=== PATIENT | female | born 1960 | race Caucasian/White ===

== ENCOUNTER → 2016-09-30 | Outpatient (CLI) | payer OTHER ==
[~2016-09-30] VITALS: Ht 165.1 cm; Wt 65.3 kg
[~2016-09-30] MED LIST: NS 1,000 ML IV ONE; PROPOFOL 200 MG/20 ML VIAL As Ordered ONE
--- NOTE | 2016-09-30 09:59 | ROOR ---
Patient Name: Taniya Saab Procedure Date: 09/30/2016 9:25 AM Date of : 1960 Age: 55 Room: [facility] Gender: Female Note Status: Finalized Procedure: Colonoscopy Indications: Hematochezia Providers: DO Joey Dyson MD: Mounika Constantino NP Requesting Provider: Medicines: Propofol per Anesthesia Complications: No immediate complications. Procedure: Pre-Anesthesia Assessment: - Prior to the procedure, a History and Physical was performed, and patient medications and allergies were reviewed. The patient is competent. The risks and benefits of the procedure and the sedation options and risks were discussed with the patient. All questions were answered and informed consent was obtained. Patient identification and proposed procedure were verified by the physician, the nurse, the anesthesiologist and the electrical test technician in the endoscopy suite. Mental Status Examination: alert and oriented. Airway Examination: normal oropharyngeal airway and neck mobility. Respiratory Examination: clear to auscultation. CV Examination: normal. Prophylactic Antibiotics: The patient does not require prophylactic antibiotics. Prior Anticoagulants: The patient has taken no previous anticoagulant or antiplatelet agents. ASA Grade Assessment: II - A patient with mild systemic disease. After reviewing the risks and benefits, the patient was deemed in satisfactory condition to undergo the procedure. The anesthesia plan was to use monitored anesthesia care (MAC). Immediately prior to administration of medications, the patient was re-assessed for adequacy to receive sedatives. The heart rate, respiratory rate, oxygen saturations, blood pressure, adequacy of pulmonary ventilation, and response to care were monitored throughout the procedure. The physical status of the patient was re-assessed after the procedure. The Colonoscope was introduced through the anus and advanced to the cecum, identified by the appendiceal orifice, ileocecal valve and palpation. The colonoscopy was performed without difficulty. The patient tolerated the procedure well. Findings: The digital rectal exam revealed a 3 cm (diameter) firm rectal mass palpated 3 to 10 cm from the anal verge. The mass was circumferential. A few small-mouthed diverticula were found in the sigmoid colon. The exam was otherwise without abnormality. Impression: - Rectal mass 3 to 10 cm from the anal verge. Biopsied. - Diverticulosis in the sigmoid colon. - The examination was otherwise normal. - No specimens collected. Recommendation: - Patient has a contact number available for emergencies. The signs and symptoms of potential delayed complications were discussed with the patient. Return to normal activities tomorrow. Written discharge instructions were provided to the patient. - Return to my office in 1 week. - Await pathology results. Get Orantes DO 09/30/2016 9:59:15 AM This report has been signed electronically. Number of Addenda: 0 Note Initiated On: 09/30/2016 9:25 AM Estimated Blood Loss: Estimated blood loss was minimal.
[2016-09-30 10:20] VITALS: BP 121/65
== END ==
LOC: M OPP 08:22
PROVIDERS: ATTEND Surgery
DX: K92.1 Melena (principal); K62.89 Other specified diseases of anus and rectum; K57.30 Diverticulosis of large intestine without perforation or abscess without bleeding; K64.8 Other hemorrhoids; R19.4 Change in bowel habit; Z80.0 Family history of malignant neoplasm of digestive organs; F41.9 Anxiety disorder, unspecified; F32.9 Major depressive disorder, single episode, unspecified; Z87.891 Personal history of nicotine dependence

== ENCOUNTER → 2016-10-02 | Outpatient (CLI) | payer OTHER ==
[~2016-10-02] MED LIST changes: +GASTROGRAFIN SOLUTION 30ML (Q9963) As Ordered ONE; +ISOVUE-370 76% 100ML VIAL (Q9967) As Ordered ONE; -NS 1,000 ML IV ONE; -PROPOFOL 200 MG/20 ML VIAL As Ordered ONE
--- NOTE | 2016-10-02 15:28 | REP ---
Clinical: Rectal mass by colonoscopy. Technique: Axial contrast enhanced images from the lung bases to the pubic symphysis using oral and 100 ml Isovue 370 intravenous contrast material with precontrast images of the abdomen as well as coronal and sagittal re-formations. Findings: The distal rectosigmoid colon within the ischiorectal fossa demonstrates poor contour definition outlining the actual colon as well as irregular lumen and irregular asymmetric appearance to the wall and mucosal with moderate surrounding inflammatory stranding (Images 113 - 130). Small adjacent lymph nodes are also appreciated. These findings are nonspecific and differential diagnosis would include neoplasm as well as infectious/inflammatory process. Correlation with physical examination is recommended and if necessary, repeat examination with rectal contrast to better outline the lumen may be considered. The remainder of the small and large bowel is grossly unremarkable. There is no evidence for bowel obstruction. Normal terminal ileum and appendix identified in the right lower quadrant. No ascites. No free air. Liver, spleen, pancreas, gallbladder, bilateral adrenal glands and kidneys are normal. Pelvis demonstrates normal bladder and presumed myomatous changes to the uterus. No significant retroperitoneal or abdominal adenopathy noted. Mild atherosclerotic changes of the aorta appreciated without aneurysm or dissection. Musculoskeletal structures demonstrate age-related degenerative changes. Lung bases are clear. Visualized heart and pericardium normal. Impression: Irregular appearance and surrounding changes involving the rectosigmoid colon as described above. Differential diagnosis includes neoplasm as well as infectious/inflammatory process. Signed by Sam Go MD 10/02/2016 03:20 P
== END ==
LOC: M RAD 13:04
PROVIDERS: ATTEND Surgery
DX: K62.89 Other specified diseases of anus and rectum (principal)
CPT/HCPCS: 74178; Q9963; Q9967

== ENCOUNTER → 2016-10-19 | Outpatient (REF) | payer OTHER | LOC: M LAB REF 17:05 | PROVIDERS: ATTEND Internal Medicine Medical Oncology | DX: C26.0 Malignant neoplasm of intestinal tract, part unspecified (principal) ==

== ENCOUNTER → 2016-10-21 | Outpatient (CLI) | payer OTHER ==
--- NOTE | 2016-10-29 18:52 | REP ---
Whole body PET CT scan: Scanning is performed of the skull base to the upper thighs. Comparison studies are the CT of the chest dated 10/27/[address] of the abdomen pelvis dated 10/21/2016. Neck and supraclavicular areas: There are no hypermetabolic foci. Chest: There are no hypermetabolic foci. Abdomen, pelvis and upper thighs: There is intense hypermetabolic uptake in the rectosigmoid colon. There is a 1.7 cm focus of hypermetabolic uptake medial to the right acetabulum, likely within a pelvic node. There are no other hypermetabolic foci. There is physiologic radio labeling of the renal pelves and bladder. Impression: There is intense hypermetabolic uptake in the rectosigmoid colon with the standard uptake value of 12.6. There is a focus of metabolic uptake medial to the right acetabulum with a standard uptake value of 21.0. There are no other hypermetabolic foci. The study is performed with 10 mCi of F 18 F D G. Signed by Get Leahy MD 10/29/2016 06:44 P
== END ==
LOC: M PLARAD 08:16
PROVIDERS: ATTEND Internal Medicine Medical Oncology
DX: C26.0 Malignant neoplasm of intestinal tract, part unspecified (principal)
CPT/HCPCS: 78815; A9552

== ENCOUNTER → 2016-10-27 | Outpatient (CLI) | payer OTHER ==
[~2016-10-27] MED LIST changes: -GASTROGRAFIN SOLUTION 30ML (Q9963) As Ordered ONE
--- NOTE | 2016-10-28 06:49 | REP ---
Clinical: Rectal cancer for staging. Technique: Axial contrast enhanced images from the thoracic inlet to the upper abdomen using 100 ml Isovue 370 intravenous contrast material with coronal and sagittal re-formations. Comparison: None. Findings: The bilateral lung rey are well-aerated, symmetric, and clear. No pulmonary parenchymal consolidation, nodule or mass lesion appreciated. No pleural effusion/reaction or pneumothorax. Mediastinum demonstrates a normal thoracic aorta, pulmonary vasculature, heart and pericardium. No axillary, hilar, or mediastinal adenopathy. Tracheobronchial tree is patent. Surrounding musculoskeletal structures are intact without focal osseous abnormality. Limited evaluation of the upper abdomen demonstrates normal bilateral adrenal glands. Impression: Normal contrast enhanced chest CT. No acute mediastinal or pleuroparenchymal process. Signed by Sam Go MD 10/28/2016 06:40 A
== END ==
LOC: M RAD 08:21
PROVIDERS: ATTEND Internal Medicine Medical Oncology
DX: C26.0 Malignant neoplasm of intestinal tract, part unspecified (principal)
CPT/HCPCS: 71260; Q9967

== ENCOUNTER → 2016-10-29 | Outpatient (CLI) | payer OTHER ==
--- NOTE | 2016-10-30 13:03 | RADONC ---
RADIATION ONCOLOGY CONSULTATION NOTE DATE: 10/29/2016 CHART NUMBER: [id number] DIAGNOSIS: Rectal cancer STAGE: III B, [id number]. ECOG performance status is zero. CONSULTATION NOTE: Ms. Saab is a very pleasant 55-year-old white female with the diagnosis of what appears to be a stage III B, [id number] adenocarcinoma of the rectum who is presenting to us today for consideration of external beam radiation therapy preoperatively combined with chemotherapy as a therapeutic option. HISTORY OF PRESENT ILLNESS: The patient was in her usual state of health, but noticed some rectal bleeding over the past few months. She was seen by Dr. Orantes who undertook colonoscopy and was found to have a rectal lesion approximately 3 cm wide ranging from 3 cm to 10 cm from the anal verge. Biopsy was undertaken on 09/30/2016 and pathology revealed an adenocarcinoma of the rectum. Ultrasound was done by Dr. Birmingham and the tumor was found to be quite large and circumferential. It abuts the vaginal wall, but did not invade through it. The ultrasound shows the lesion to be a T3 lesion through the wall with positive lymph nodes. A CT scan was done on 10/02/2016 and showed an irregular asymmetric appearance to the wall and mucosa of the rectosigmoid region with moderate surrounding inflammatory stranding. There were small adjacent lymph nodes also appreciated. A PET scan was done on 10/21/2016 and showed a 1.7 cm focus of hypermetabolic uptake near the right acetabulum which was thought to be a pelvic lymph node. SUV value was 21.0. The rectosigmoid colon shows a SUV value of 12.6. The patient is now presenting for consideration of preoperative radiation therapy combined with systemic therapy as a therapeutic option. PAST MEDICAL HISTORY: The patient's past medical history has been largely noncontributory. She did have two C-sections, one in 1985 and one in 1987. ALLERGIES: The patient has NO KNOWN DRUG ALLERGIES. SOCIAL HISTORY: The patient quit smoking 25 years ago. She drinks alcohol socially. FAMILY HISTORY: The patient's family history is positive for a father with prostate cancer, a sister with colon cancer and a daughter with leukemia. REVIEW OF SYSTEMS: The patient's review of systems is positive for some decreased energy as well as some rectal discomfort and bleeding. It is otherwise noncontributory. She denies standard review of systems. PHYSICAL EXAMINATION: The patient is a well-developed, well-nourished, 56-year-old female in no acute distress. HEENT exam is normocephalic, atraumatic. Extraocular movements are intact. There is no palpable cervical, supraclavicular, infraclavicular, axillary, or inguinal lymphadenopathy present. Lungs are clear to auscultation and percussion. Heart has a regular rate and rhythm. Abdomen is benign with no hepatosplenomegaly, masses, or tenderness. Rectal examination reveals a normal anal sphincter tone. There is a mass clearly palpable beginning approximately 3 cm from the anal verge and extending as far as my finger can reach. Skeletal examination reveals no tenderness to pressure or percussion of the bony skeleton. Extremities reveal no clubbing, cyanosis, or edema. Neurologic exam is grossly intact, as is the remainder of the physical examination. ASSESSMENT: Clearly, the patient is a candidate for preoperative radiation therapy and I have so informed her. I have discussed with the patient in detail the potential benefits as well as possible acute and chronic sequelae of external beam radiation therapy. We discussed logistics of treatment planning, simulation and subsequent fractionated daily radiation treatments. I have scheduled the patient for the next available simulation slot and radiation treatments will follow subsequently. Thank you for allowing us to participate in the care of this very pleasant woman. If I could be of any further assistance or provide you with any information, please feel free to contact me at anytime. As always warm regards. cc: DO Alie Dyson MD Bonnie Servage, RN Jack Ziegler, MD MTDD
== END ==
LOC: M ONCR 08:52
PROVIDERS: ATTEND Radiology Radiation Oncology
DX: C26.0 Malignant neoplasm of intestinal tract, part unspecified (principal)

== ENCOUNTER 2016-11-03 10:38 | Outpatient (RCR) | payer OTHER ==
--- NOTE | 2016-11-03 10:44 | RADONC ---
RADIATION ONCOLOGY SIMULATION NOTE DATE: 11/03/2016 CHART NUMBER: [id number] Ms. Saab was taken to the CT scan for CT simulation of her rectal field. CT was accomplished without difficulty or discomfort. Radiation treatment planning is underway, and radiation treatments will begin subsequently. I was physically present throughout the course of CT simulation. An immobilization device was created and will be used throughout the course of treatment. It was also created without difficulty or discomfort.
== END 2016-11-13 ==
LOC: M ONCR 10:38
PROVIDERS: ATTEND Radiology Radiation Oncology
DX: C20 Malignant neoplasm of rectum (principal)

== ENCOUNTER → 2016-11-03 | Outpatient (CLI) | payer OTHER ==
[~2016-11-03] MED LIST changes: -ISOVUE-370 76% 100ML VIAL (Q9967) As Ordered ONE; +SILV-4 TOP
== END ==
LOC: M RAD 10:18
PROVIDERS: ATTEND Radiology Radiation Oncology
DX: C20 Malignant neoplasm of rectum (principal)

== ENCOUNTER → 2016-11-04 | Outpatient (REF) | payer OTHER | LOC: M LAB REF 17:35 | PROVIDERS: ATTEND Internal Medicine Medical Oncology | DX: C18.9 Malignant neoplasm of colon, unspecified (principal) ==

== ENCOUNTER → 2016-11-09 | Outpatient (CLI) | payer OTHER ==
[~2016-11-09] MED LIST changes: +LIDOCAINE 2% MDV 20 ML VIAL As Ordered ONE; +LIDOCAINE W/EPINEPHRINE 1% 20ML VIAL As Ordered ONE; +ceFAZolin 1GM INJ (J0690) As Ordered ONE; +fentaNYL 100 MCG/2 ML INJECTION (J3010) As Ordered ONE
--- NOTE | 2016-11-09 17:47 | REPKIM ---
CLINICAL HISTORY: Latty-rectal ca. The referring service has asked a chest [id number] placement for chemotherapy. PROCEDURE PERFORMED: Placement of totally implantable venous access device under combined sonographic and fluoroscopic guidance INTERVENTIONALIST: Polly Randhawa MD CONSENT: The risks, benefits and alternatives to the procedure were explained to the patient and informed written consent was obtained. MEDICATIONS: Local Lidocaine, Ancef 1gm IV and Fentanyl 75 mcg IV. Independent trained observer was present during the entire duration of the procedure for monitoring. EBL: 10 mL FLUORO TIME: 0.5 minutes DEVICE USED: [place] Port 8-Czech, Single-Lumen Lot#[id number] PROCEDURE/FINDINGS: The patient was brought to the interventional radiology suite and was positioned supine on the table. Time out procedure was performed. Real time ultrasound was used and permanent image stored. The right IJ vein is patent and compressible. Using ultrasound guidance the internal jugular vein was accessed with a micropuncture needle, after infiltration of the skin and deep tissues with local anesthetic. A peel-away sheath was placed. The catheter tip was inserted via the sheath under controlled respiration. The sheath was removed, and the catheter was flushed with heparinized saline and clamped. Next attention was turned to creation of a subcutaneous pocket for the port along the upper chest. The overlying skin and deep tissues were infiltrated with local anesthetic. A transverse skin incision was made long enough to accommodate the reservoir, and using blunt dissection a subcutaneous pocket was created. A tunnel was created from the pocket to the access site. A clamp was advanced from the pocket incision to the venous access site and used to grasp the free end of the catheter and pull it through to the pocket incision. The catheter was trimmed, attached to the reservoir, and flushed with heparinized saline. The reservoir was inserted into the pocket and secured with 2-0 absorbable sutures. The deep tissue was closed with interrupted 2-0 Vicryl suture. The skin incision was closed with a running subcuticular suture of 4-0 Vicryl. The venotomy incision was closed with 4-0 Vicryl suture. Mastisol and Steri-Strips were applied. The port was then accessed and Heparin (100 units/mL concentration) locked in the port. A sterile dressing was then applied. Post procedure chest spot film radiograph showed the tip of the catheter is at the SVC. The patient tolerated the procedure well with no immediate complications. This procedure was performed using ultrasound and fluoroscopy. Dr. Randhawa was present. IMPRESSION: 1. The right IJ vein is patent and compressible. 2. Successful placement of right IJ chest port placement as discussed above. The chest [id number] is ready for use. cc: MD BERNABE Lemons
== END | disposition home or self-care (01) ==
LOC: M IRPRO 13:35
PROVIDERS: ATTEND Internal Medicine Medical Oncology
DX: C19 Malignant neoplasm of rectosigmoid junction (principal)
CPT/HCPCS: 36561; 76937; 77001; C1788; C1894; J0690; J3010

== ENCOUNTER 2016-11-18 09:03 | Outpatient (RCR) | payer OTHER ==
--- NOTE | 2016-11-23 14:28 | RADONC ---
RADIATION ONCOLOGY PROGRESS NOTE: DATE OF SERVICE: 11/23/2016 CHART NUMBER: [id number] Ms. Saab underwent her first fraction of radiation today to her rectum. It was tolerated without difficulty or discomfort. REVIEW OF SYSTEMS: The patient's review of systems is unchanged. She has no increased rectal pain or discomfort. The remainder of review of systems is unremarkable. She denies nausea, vomiting, fevers, chills, night sweats, diplopia, headaches, anxiety or depression, anorexia, weight loss, visual disturbances, chest pain, urinary or bowel difficulties, bone pain, or neurological problems. PHYSICAL EXAMINATION: The patient's skin clearly shows no evidence of radiation change present since this was her first fraction. The remainder of physical exam remains unchanged as well. Ms. Saab tolerated her first fraction well and radiation will continue as scheduled.
--- NOTE | 2016-11-30 10:24 | RADONC ---
RADIATION ONCOLOGY PROGRESS NOTE DATE: 11/30/2016 CHART NUMBER: Ms. Saab is presently at a dose of 1080 centigrade to her rectum and is tolerating treatments quite well at this point with no complaints related to her radiation therapy. She is having no urinary or bowel difficulties and no bone pain. REVIEW OF SYSTEMS: The patient's review of systems is noncontributory. Denies nausea, vomiting, fevers, chills, night sweats, diplopia, headaches, anxiety or depression, anorexia, weight loss, visual disturbances, chest pain, urinary or bowel difficulties, bone pain, or neurological problems. PHYSICAL EXAMINATION: The patient's skin is in good condition with no evidence of radiation change present. There is no moist or dry desquamation. The remainder of her physical exam remains unchanged. Ms. Saab is tolerating treatments quite well and radiation will continue as scheduled.
--- NOTE | 2016-12-07 10:40 | RADONC ---
RADIATION ONCOLOGY PROGRESS NOTE DATE: 12/07/2016 CHART NUMBER: [id number] Ms. Saab is presently at a dose of 1980 cGy to her rectum and is tolerating treatments quite well at this point with no significant complaints related to her radiation therapy other than some skin tenderness. REVIEW OF SYSTEMS: The patient's review of systems is positive for some rectal tenderness but is otherwise noncontributory. She denies nausea, vomiting, fevers, chills, night sweats, diplopia, headaches, anxiety or depression, anorexia, weight loss, visual disturbances, chest pain, urinary or bowel difficulties, bone pain, or neurological problems. PHYSICAL EXAMINATION: The patient's skin is in good condition with no evidence of moist or dry desquamation. There is some radiation tanning present. The remainder of her physical exam remains unchanged. Ms. Saab is tolerating treatments quite well and radiation will continue as scheduled.
--- NOTE | 2016-12-14 11:35 | RADONC ---
RADIATION ONCOLOGY PROGRESS NOTE DATE: 12/14/2016 CHART NUMBER: Ms. Saab is presently at a dose of 2880 cGy to her rectum and is tolerating treatments quite well at this point with no complaints related to her radiation therapy. She is having no urinary or bowel difficulties and no bone pain. The patient's review of systems is positive for some itching of the skin in the treated field but is otherwise noncontributory. She denies nausea, vomiting, fevers, chills, night sweats, diplopia, headaches, anxiety or depression, anorexia, weight loss, visual disturbances, chest pain, urinary or bowel difficulties, bone pain, or neurological problems. PHYSICAL EXAMINATION: The patient's skin is in good condition with no evidence of moist or dry desquamation. The remainder of her physical exam remains unchanged. Ms. Saab is tolerating treatments quite well and radiation will continue as scheduled.
== END 2016-12-14 ==
LOC: M ONCR 09:03
PROVIDERS: ATTEND Radiology Radiation Oncology
DX: C20 Malignant neoplasm of rectum (principal)

== ENCOUNTER 2016-12-15 10:17 | Outpatient (RCR) | payer OTHER ==
[2016-12-21] MEDS ORDERED: SILV-4 TOP (10:11)
--- NOTE | 2016-12-21 11:22 | RADONC ---
RADIATION ONCOLOGY PROGRESS NOTE DATE: 12/21/2016 CHART NUMBER: [id number] Ms. Saab is presently at a dose of 3780 cGy to her rectum and is tolerating treatments fairly well with no significant difficulties related to her radiation therapy other than some perirectal pain. REVIEW OF SYSTEMS: The patient's review of systems is positive for some rectal pain, but is otherwise noncontributory. She denies nausea, vomiting, fevers, chills, night sweats, diplopia, headaches, anxiety or depression, anorexia, weight loss, visual disturbances, chest pain, urinary or bowel difficulties, bone pain, or neurological problems. PHYSICAL EXAMINATION: The patient's skin shows some erythema and small areas of desquamation present. There is also some radiation tanning present. The remainder of her physical exam remains unchanged. Ms. Saab only has a few treatments left and will continue radiation as scheduled. I have sent in a prescription for Silvadene.
--- NOTE | 2016-12-25 15:06 | RADONC ---
RADIATION ONCOLOGY TREATMENT SUMMARY: DATE: 12/25/2016 CHART NUMBER: [id number] DIAGNOSIS: Rectal cancer. STAGE: IIIB, [id number]. ECOG PERFORMANCE STATUS: 0. TREATMENT SUMMARY: Ms. Saab is a very pleasant 55-year-old white female with the diagnosis what appears to be a stage IIIB, [id number] adenocarcinoma of the rectum who presented to us for consideration of preoperative radiation therapy combined with chemotherapy as a therapeutic option. We treated the patient to her rectum for a total dose of 4500 cGy delivered in 25 fractions of 180 cGy each over 32 elapsed days from 11/23/2016 to 12/25/2016. The patient's rectum was treated on a linear accelerator utilizing an 18 MV photon beam via 3-D technique utilizing posterior right and left lateral rey. Ms. Saab tolerated her treatments quite well and was able to complete therapy as prescribed without interruption. The patient is scheduled see me again in 1 month for further followup and will continue to be followed by her other physicians in the meantime. The patient is scheduled to be seen by Dr. Cristiano Birmingham for discussion of her his surgical intervention. cc: Get Orantes, MD Mounika Souza, KARIE Birmingham MD
== END 2017-01-14 ==
LOC: M ONCR 10:17
PROVIDERS: ATTEND Radiology Radiation Oncology
DX: C20 Malignant neoplasm of rectum (principal)

== ENCOUNTER → 2017-01-22 | Outpatient (REF) | payer OTHER ==
[~2017-01-22] MED LIST changes: -LIDOCAINE 2% MDV 20 ML VIAL As Ordered ONE; -LIDOCAINE W/EPINEPHRINE 1% 20ML VIAL As Ordered ONE; -ceFAZolin 1GM INJ (J0690) As Ordered ONE; -fentaNYL 100 MCG/2 ML INJECTION (J3010) As Ordered ONE
== END ==
LOC: M LAB REF 12:25
PROVIDERS: ATTEND Internal Medicine Medical Oncology
DX: C20 Malignant neoplasm of rectum (principal)

== ENCOUNTER → 2017-01-27 | Outpatient (CLI) | payer OTHER ==
--- NOTE | 2017-01-28 06:39 | RADONC ---
RADIATION ONCOLOGY FOLLOWUP NOTE DATE: 01/27/2017 CHART NUMBER: [id number]. DIAGNOSIS: Rectal cancer. STAGE: IIIB, [id number]. ECOG PERFORMANCE STATUS: Zero. FOLLOWUP NOTE: Ms. Saab is a very pleasant, 55-year-old white female with the diagnosis what appears to be a stage IIIB, [id number] adenocarcinoma of the rectum who is presenting to us today for routine followup visit 1 month post completion of external beam radiation therapy. The patient presents today reporting that she is doing quite well with no complaints at this time related to her radiation therapy or disease. She is having no anal discomfort or other problems. REVIEW OF SYSTEMS: The patient's review of systems is noncontributory. Denies nausea, vomiting, fevers, chills, night sweats, diplopia, headaches, anxiety or depression, anorexia, weight loss, visual disturbances, chest pain, urinary or bowel difficulties, bone pain, or neurological problems. PHYSICAL EXAMINATION: The patient is a well-developed, well-nourished, 56-year-old female, in no acute distress. HEENT exam is normocephalic, atraumatic. Extraocular movements are intact. There is no palpable cervical, supraclavicular, infraclavicular, axillary, or inguinal lymphadenopathy present. Lungs are clear to auscultation and percussion. Heart has a regular rate and rhythm. Abdomen is benign with no hepatosplenomegaly, masses, or tenderness. Skeletal examination reveals no tenderness to pressure or percussion of the bony skeleton. Extremities reveal no clubbing, cyanosis, or edema. Jing anal examination reveals her skin to be in good condition with no evidence of moist or dry desquamation. It has largely to normal. Neurologic exam is grossly intact, as is the remainder of the physical examination. ASSESSMENT: The patient is doing quite well at this point. I have not done a full rectal examination since she is scheduled for that on Wednesday with ultrasound being done by Dr. Birmingham. She is scheduled for preoperative workup on the of this month and surgery is scheduled for the . In light of this, I have set her up for routine followup in my office in 6 months' time. She will also continue to be followed by her other physicians in the meantime. cc: DO Alie Dyson MD Bonnie Servage, RN Jack A Ziegler, MD
== END ==
LOC: M ONCR 10:51
PROVIDERS: ATTEND Radiology Radiation Oncology
DX: C20 Malignant neoplasm of rectum (principal)

== ENCOUNTER → 2017-03-04 | Outpatient (CLI) | payer OTHER ==
[~2017-03-04] MED LIST changes: +ISOVUE-370 76% 100ML VIAL (Q9967) As Ordered ONE
--- NOTE | 2017-03-04 13:50 | REP ---
CT ANGIOGRAM CHEST: TECHNIQUE: Axial contrast enhanced images from the thoracic inlet to the upper abdomen using 100 mL Isovue 370 intravenous contrast material with multiplanar reformations. There is no CT evidence of pulmonary embolism. There is no thoracic aortic aneurysm or dissection. There is no evidence of cardiomegaly. There is no evidence of mediastinal, hilar or chest wall lymphadenopathy. There is no pleural or pericardial effusion. No infiltrates are seen in either lung. Right-sided Mediport catheter is noted. Visualized upper abdominal structures appear unremarkable. IMPRESSION: No CT evidence of pulmonary embolism or other acute abnormality. Signed by Get Cheng MD 03/04/2017 05:35 P
== END ==
LOC: M RAD 12:09
PROVIDERS: ATTEND Internal Medicine Medical Oncology
DX: R50.9 Fever, unspecified (principal); R05 Cough; R06.02 Shortness of breath

== ENCOUNTER → 2017-06-15 | Outpatient (REF) | payer OTHER ==
[2017-06-15 14:20] LABS: CARCINOEMBRYONIC ANTIGEN < 0.5 NG/ML (<2.5)
== END ==
LOC: M LAB REF 13:10
DX: C20 Malignant neoplasm of rectum (principal)

== ENCOUNTER → 2017-07-12 | Outpatient (REF) | payer OTHER ==
[2017-07-13 09:58] LABS: CARCINOEMBRYONIC ANTIGEN < 0.5 NG/ML (<2.5)
== END ==
LOC: M LAB REF 09:40
DX: C20 Malignant neoplasm of rectum (principal)

== ENCOUNTER → 2017-07-26 | Outpatient (REF) | payer OTHER ==
[2017-07-27 09:57] LABS: CARCINOEMBRYONIC ANTIGEN < 0.5 NG/ML (<2.5)
== END ==
LOC: M LAB REF 13:45
DX: C20 Malignant neoplasm of rectum (principal)

== ENCOUNTER → 2017-07-28 | Outpatient (CLI) | payer OTHER | LOC: M ONCR 08:48 | DX: C20 Malignant neoplasm of rectum (principal) | CPT/HCPCS: G0463 ==

== ENCOUNTER 2017-07-31 14:42 | Emergency (ER) | payer OTHER ==
[2017-07-31 15:33] LABS: BASO % 0.4 % (0.0-1.0); EOS % 0.4 % (0.0-3.0); HEMATOCRIT 33.3 % (36.0-47.0); HEMOGLOBIN 11.3 g/dl (12.0-16.0); IMMATURE GRANULOCYTE % 0.4 % (0-3.0); LYMPH # 0.3 10^3/uL (1.5-4.5); LYMPH % 10.7 % (24.0-44.0); MEAN CORPUSCULAR HEMOGLOBIN 32.6 pg (27.0-33.0); MEAN CORPUSCULAR HGB CONC 33.9 g/dl (32.0-36.5); MONO # 0.1 10^3/uL (0.0-0.8); MONO % 3.7 % (0.0-5.0); NEUTROPHILS # 2.3 10^3/uL (1.8-7.7); NEUTROPHILS % 84.4 % (36.0-66.0); PLATELET COUNT, AUTOMATED 223 10^3/uL (150-450); RED BLOOD COUNT 3.47 10^6/uL (4.00-5.40); WHITE BLOOD COUNT 2.7 10^3/uL (4.0-10.0)
[2017-07-31 15:36] LABS: INR 0.86; PROTHROMBIN TIME 11.8 SECONDS (12.4-14.5)
[2017-07-31 15:45] LABS: ALBUMIN 3.6 GM/DL (3.2-5.2); ALKALINE PHOSPHATASE 131 U/L (45-117); ALT/SGPT 45 U/L (12-78); ANION GAP 9 MEQ/L (8-16); AST/SGOT 34 U/L (7-37); BILIRUBIN,DIRECT < 0.1 MG/DL (0.0-0.2); BILIRUBIN,TOTAL 0.4 MG/DL (0.2-1.0); BLOOD UREA NITROGEN 15 MG/DL (7-18); CALCIUM LEVEL 8.9 MG/DL (8.5-10.1); CARBON DIOXIDE LEVEL 26 MEQ/L (21-32); CHLORIDE LEVEL 104 MEQ/L (98-107); CREATININE FOR GFR 0.45 MG/DL (0.55-1.30); GLOMERULAR FILTRATION RATE > 60.0 (>51); GLUCOSE, FASTING 124 MG/DL (70-100); LIPASE 511 U/L (73-393); POTASSIUM SERUM 4.1 MEQ/L (3.5-5.1); SODIUM LEVEL 139 MEQ/L (136-145); TOTAL PROTEIN 7.6 GM/DL (6.4-8.2)
[2017-07-31 15:48] LABS: POSITIVE DIFF POS FLAG
[2017-07-31] MEDS: NS 1,000 ML IV (16:45)
[2017-07-31] MEDS: ONDANSETRON 4MG/2ML VIAL (J2405) IV (16:47)
[2017-07-31] MEDS: MORPHINE 2 MG/ML 1ML SYRINGE (J2270) IV (16:47)
[2017-07-31] MEDS ORDERED: ISOVUE-370 76% 100ML VIAL (Q9967) As Ordered (17:03)
== END 2017-07-31 18:28 | disposition home or self-care (01) ==
LOC: M ED 14:42
DX: R10.9 Unspecified abdominal pain (principal); R11.2 Nausea with vomiting, unspecified; Z93.2 Ileostomy status; Z85.048 Personal history of other malignant neoplasm of rectum, rectosigmoid junction, and anus; Z92.21 Personal history of antineoplastic chemotherapy
CPT/HCPCS: J2405

== ENCOUNTER 2017-09-07 16:21 | Emergency (ER) | payer OTHER ==
[2017-09-07] MEDS ORDERED: ISOVUE-370 76% 100ML VIAL (Q9967) As Ordered (18:23)
[2017-09-07 19:04] LABS: AMORPHOUS SEDIMENT RFX SMALL (NEGATIVE); KETONE, URINE AUTO RFX 1+ mg/dL (NEGATIVE); MUCUS, URINE RFX LARGE (NEGATIVE); NITRITE, URINE AUTO RFX NEGATIVE (NEGATIVE); RBC, URINE AUTO RFX 4 /HPF (0-3); SPECIFIC GRAVITY UR AUTO RFX 1.023 (1.002-1.035); SQUAM EPITHELIAL CELL UR AURFX 0 /HPF (0-6)
[2017-09-07 19:05] LABS: LEUKOCYTE ESTERASE UR AUTO RFX 2+ (NEGATIVE); WBC, URINE AUTO RFX 19 /HPF (0-3)
[2017-09-07 19:09] LABS: BASO % 0.1 % (0.0-1.0); EOS # 0.1 10^3/uL (0.0-0.50); EOS % 0.8 % (0.0-3.0); HEMATOCRIT 31.5 % (36.0-47.0); HEMOGLOBIN 10.4 g/dl (12.0-15.5); IMMATURE GRANULOCYTE % 0.6 % (0-3.0); LYMPH # 0.4 10^3/uL (1.5-4.5); LYMPH % 5.2 % (24.0-44.0); MEAN CORPUSCULAR HEMOGLOBIN 33.9 pg (27.0-33.0); MEAN CORPUSCULAR VOLUME 102.6 fl (80.0-96.0); MONO # 0.7 10^3/uL (0.0-0.8); MONO % 8.8 % (0.0-5.0); NEUTROPHILS # 6.7 10^3/uL (1.8-7.7); NEUTROPHILS % 84.5 % (36.0-66.0); PLATELET COUNT, AUTOMATED 395 10^3/uL (150-450); RED BLOOD COUNT 3.07 10^6/uL (4.00-5.40); RED CELL DISTRIBUTION WIDTH 15.4 % (11.5-14.5)
[2017-09-07 19:20] LABS: INR 1.13; PROTHROMBIN TIME 14.7 SECONDS (12.4-14.5)
[2017-09-07 19:21] LABS: PARTIAL THROMBOPLASTIN TIME 29.9 SECONDS (26.8-37.9)
[2017-09-07 19:31] LABS: ALBUMIN 3.2 GM/DL (3.2-5.2); ALBUMIN/GLOBULIN RATIO 0.74 (1.00-1.93); ALKALINE PHOSPHATASE 228 U/L (45-117); ALT/SGPT 37 U/L (12-78); AMYLASE 65 U/L (25-115); ANION GAP 10 MEQ/L (8-16); AST/SGOT 39 U/L (7-37); BILIRUBIN,DIRECT 0.2 MG/DL (0.0-0.2); BILIRUBIN,TOTAL 0.6 MG/DL (0.2-1.0); BLOOD UREA NITROGEN 19 MG/DL (7-18); CALCIUM LEVEL 8.8 MG/DL (8.5-10.1); CARBON DIOXIDE LEVEL 27 MEQ/L (21-32); CHLORIDE LEVEL 103 MEQ/L (98-107); GLOMERULAR FILTRATION RATE > 60.0 (>51); GLUCOSE, FASTING 115 MG/DL (70-100); LIPASE 215 U/L (73-393); POTASSIUM SERUM 2.9 MEQ/L (3.5-5.1); SODIUM LEVEL 140 MEQ/L (136-145); TOTAL PROTEIN 7.5 GM/DL (6.4-8.2)
[2017-09-07] MEDS: ONDANSETRON 4MG/2ML VIAL (J2405) IV (19:44)
[2017-09-07] MEDS: NS 1,000 ML IV ×2 (19:44→20:45)
[2017-09-07] MEDS: MORPHINE 4 MG/ML 1ML VIAL/SYRINGE (J2270) IV (19:45)
[2017-09-07 19:46] LABS: LACTIC ACID SEPSIS PROTOCOL 1.2 MMOL/L (0.4-2.0)
[2017-09-07] MEDS: KCL 10MEQ/100ML SWI (KRUN) 10 MEQ in APPROPRIATE DILUENT 1 EA IV (20:18)
== END 2017-09-07 22:12 | disposition short-term general hospital (02) ==
LOC: M ED 16:21
DX: K56.609 Unspecified intestinal obstruction, unspecified as to partial versus complete obstruction (principal); E87.6 Hypokalemia; C20 Malignant neoplasm of rectum; Z87.891 Personal history of nicotine dependence; Z79.899 Other long term (current) drug therapy
CPT/HCPCS: J2270

== ENCOUNTER → 2017-09-30 | Outpatient (REF) | payer OTHER ==
[2017-09-30 14:43] LABS: FERRITIN 172 NG/ML (8-252); IRON (FE) 39 UG/DL (50-170); PERCENT SATURATION 14.6 % (13.2-45.0); TOTAL IRON BINDING CAPACITY 267 UG/DL (250-450)
[2017-10-01 10:38] LABS: CARCINOEMBRYONIC ANTIGEN < 0.5 NG/ML (<2.5)
== END ==
LOC: M LAB REF 13:33
DX: C19 Malignant neoplasm of rectosigmoid junction (principal)

== ENCOUNTER → 2017-11-30 | Outpatient (CLI) | payer OTHER ==
[~2017-11-30] MED LIST changes: +GASTROGRAFIN SOLUTION 30ML (Q9963) As Ordered; +ISOVUE-370 76% 100ML VIAL (Q9967) As Ordered; -ISOVUE-370 76% 100ML VIAL (Q9967) As Ordered ONE; -SILV-4 TOP
== END ==
LOC: M RAD 09:06
DX: C18.9 Malignant neoplasm of colon, unspecified (principal); K76.0 Fatty (change of) liver, not elsewhere classified; K76.89 Other specified diseases of liver
CPT/HCPCS: Q9963

== ENCOUNTER → 2017-12-07 | Outpatient (REF) | payer OTHER ==
[2017-12-07 11:05] LABS: FERRITIN 38 NG/ML (8-252); IRON (FE) 47 UG/DL (50-170); PERCENT SATURATION 14.6 % (13.2-45.0); TOTAL IRON BINDING CAPACITY 321 UG/DL (250-450)
[2017-12-07 11:49] LABS: CARCINOEMBRYONIC ANTIGEN < 0.5 NG/ML (<2.5)
== END ==
LOC: M LAB REF 10:42
DX: C19 Malignant neoplasm of rectosigmoid junction (principal)
CPT/HCPCS: 82378

== ENCOUNTER → 2017-12-22 | Outpatient (CLI) | payer OTHER ==
[~2017-12-22] MED LIST changes: -GASTROGRAFIN SOLUTION 30ML (Q9963) As Ordered; -ISOVUE-370 76% 100ML VIAL (Q9967) As Ordered; +LIDOCAINE 2% MDV 20 ML VIAL As Ordered
== END | disposition home or self-care (01) ==
LOC: M IRPRO 10:16
DX: Z45.2 Encounter for adjustment and management of vascular access device (principal); C20 Malignant neoplasm of rectum
CPT/HCPCS: 36590

== ENCOUNTER → 2018-06-20 | Outpatient (CLI) | payer OTHER ==
[~2018-06-20] MED LIST changes: +GABA-843; +GASTROGRAFIN SOLUTION 30ML (Q9963) As Ordered ONE; +ISOVUE-370 76% 100ML VIAL (Q9967) As Ordered ONE; -LIDOCAINE 2% MDV 20 ML VIAL As Ordered; +OXYCOD/APAP; +SILV-4 TOP
--- NOTE | 2018-06-21 23:37 | REP ---
Clinical: Rectal cancer for restaging/reevaluation. Technique: Axial contrast enhanced images from the thoracic inlet to the upper abdomen using 100 ml Isovue 370 intravenous contrast material with coronal and sagittal re-formations. Comparison: 11/30/2017. Findings: The bilateral lung rey are well-aerated, symmetric, and clear. No pulmonary parenchymal consolidation, nodule or mass lesion appreciated. No pleural effusion or pneumothorax. Tracheobronchial tree is patent. No axillary, hilar, or mediastinal adenopathy. Thoracic aorta and pulmonary vasculature are normal. There is no evidence for aortic aneurysm or dissection. The heart and pericardium are normal. Surrounding musculoskeletal structures are intact and without focal osseous lesion. Limited upper abdomen demonstrates normal bilateral adrenal glands. Impression: 1. Normal contrast enhanced chest CT. 2. No acute mediastinal or pleuroparenchymal process. 3. No evidence for metastasis. Electronically Signed by Sam Go MD 06/21/2018 11:28 P
--- NOTE | 2018-06-21 23:44 | REP ---
Clinical: History of rectal cancer for restaging/reevaluation. Technique: Axial contrast enhanced images from the lung bases to the pubic symphysis using oral (per protocol) and 100 ml Isovue 370 intravenous contrast material with delayed images of the abdomen as well as coronal and sagittal re-formations. Comparison: 11/30/2017. Findings: The lung bases are clear. Visualized heart and pericardium are normal. Liver, spleen, pancreas, gallbladder, bilateral adrenal glands and kidneys are normal. The enteric system is without obstruction or acute inflammatory process. Evaluation of the pelvis demonstrates normal bladder and age-appropriate uterus/adnexa. No pelvic fluid. Postsurgical changes at the level of the rectum appear essentially stable and without obvious areas of increased soft tissue density to suggest recurrence. The surrounding perineal fat and muscular structures appear intact, symmetric and normal. No ascites. No free air. No significant intraperitoneal or retroperitoneal adenopathy. Abdominal aorta and vasculature without aneurysm or dissection. Musculoskeletal structures demonstrate age-related changes without focal osseous abnormality. Umbilical piercing identified. Impression: 1. No acute abdominopelvic pathology appreciated. 2. Stable postsurgical appearance at the site of prior rectal surgery. 3. No evidence for recurrence or metastatic disease noted. Electronically Signed by Sam Go MD 06/21/2018 11:36 P
== END ==
LOC: M RAD 08:08
PROVIDERS: ATTEND Internal Medicine Medical Oncology
DX: C20 Malignant neoplasm of rectum (principal)
CPT/HCPCS: 71260; 74177; Q9963; Q9967

== ENCOUNTER → 2018-07-05 | Outpatient (CLI) | payer OTHER ==
[~2018-07-05] MED LIST changes: -GASTROGRAFIN SOLUTION 30ML (Q9963) As Ordered ONE; -ISOVUE-370 76% 100ML VIAL (Q9967) As Ordered ONE
--- NOTE | 2018-07-06 02:44 | REP ---
Clinical: Lower back pain and sciatica. Technique: AP, lateral, bilateral oblique and coned-down views of the lumbosacral spine. Findings: Chronic levoconvex scoliosis centered at L4-5 with associated endplate sclerosis and osteophytosis primarily along the right side the of the lumbar spine noted. Moderate/early advanced multilevel degenerative changes primarily involving L3-4 through L5-S1 including primarily right-sided disc space narrowing due to chronic scoliosis and osteophytosis. No acute fracture / compression injury. Impression: Chronic levoconvex scoliosis and multilevel degenerative changes primarily noted along the right side of the L3-4 through L5-S1. Electronically Signed by Sam Go MD 07/06/2018 02:36 A
--- NOTE | 2018-07-06 03:22 | REP ---
Clinical: Left shoulder pain. Technique: Internal rotation, external rotation, and Y view of the left shoulder. Findings: Cortical irregularity and very subtle early spurring at the acromioclavicular joint is appreciated. The subacromial space is normal. The glenohumeral joint appears intact and normal. No acute fracture dislocation. No periarticular calcifications or loose bodies. Impression: Age-related degenerative changes at the acromioclavicular joint. Electronically Signed by Sam Go MD 07/06/2018 03:13 A
== END ==
LOC: M SMT 13:08
PROVIDERS: ATTEND Nurse Practitioner Adult Health
DX: M54.32 Sciatica, left side (principal); M25.512 Pain in left shoulder

== ENCOUNTER → 2018-07-19 | Outpatient (CLI) | payer OTHER ==
[~2018-07-19] MED LIST changes: +MULTCAP PO; +PROBCAP14 PO
--- NOTE | 2018-07-19 18:22 | REP ---
Whole body radionuclide bone scan: History: History of stage III rectal carcinoma. 3 months low back pain. Left shoulder pain. No comparison bone scan. Technique: 22.0 mCi technetium 99m MDP is injected and standard whole body bone scan imaging was acquired. Scintigraphic findings: There is an arthritic uptake pattern in the left carpometacarpal articulation for the thumb as well as at the ulnar aspect of the left wrist. These changes are most likely osteoarthritic. There is mildly increased uptake in the medial compartment of the left knee. There is arthritic uptake in both acromioclavicular joints. There is a levoconvex curve in the lumbar spine and there is degenerative disc and facet uptake in the lumbar spine. There is uptake in bilateral kidneys and in the urinary bladder. There is asymmetric uptake at the cervicothoracic junction with increased uptake in the right posterior elements. This may be degenerative facet uptake. There is moderate osteoarthritic facet sclerosis at the C7-T1 on the right at the top of the imaging field of view of the CT study from June 20, 2018. This is incompletely included in the field of view however. No other abnormal uptake is seen. Impression: Degenerative and arthritic pattern of increased uptake as noted above. There is no compelling evidence to suggest skeletal metastatic disease. Electronically Signed by Aric Cabrera MD 07/20/2018 09:34 A
== END ==
LOC: M RAD 09:28
PROVIDERS: ATTEND Nurse Practitioner Family
DX: M54.5 Low back pain (principal)

== ENCOUNTER → 2019-01-20 | Outpatient (REF) | payer OTHER | LOC: M LAB REF 11:31 | PROVIDERS: ATTEND Nurse Practitioner Adult Health | DX: E03.9 Hypothyroidism, unspecified (principal) ==

== ENCOUNTER → 2019-07-24 | Outpatient (CLI) | payer OTHER ==
[~2019-07-24] MED LIST changes: +GASTROGRAFIN SOLUTION 30ML (Q9963) As Ordered ONE; +ISOVUE-370 76% 100ML VIAL (Q9967) As Ordered ONE
== END ==
LOC: M RAD 14:20
PROVIDERS: ATTEND Internal Medicine Medical Oncology
DX: C18.9 Malignant neoplasm of colon, unspecified (principal)

== ENCOUNTER → 2019-11-05 | Outpatient (CLI) | payer OTHER ==
[~2019-11-05] MED LIST changes: +CVS1CAP2 PO; -GASTROGRAFIN SOLUTION 30ML (Q9963) As Ordered ONE; +IBUP200C25 PO; -ISOVUE-370 76% 100ML VIAL (Q9967) As Ordered ONE
== END ==
LOC: M LABSMTC 09:22
PROVIDERS: ATTEND Anesthesiology
DX: Z01.818 Encounter for other preprocedural examination (principal); Z11.59 Encounter for screening for other viral diseases
CPT/HCPCS: C9803; U0003

== ENCOUNTER 2019-11-08 07:28 | Day surgery (SDC) | payer OTHER ==
[~2019-11-08] VITALS: Ht 165.1 cm; Wt 55.3 kg
[~2019-11-08 07:28] MED LIST changes: -CVS1CAP2 PO; -IBUP200C25 PO; +LIDOCAINE 2% MDV 20ML VIAL As Ordered ONE; +propofoL 200 MG/20 ML VIAL As Ordered ONE
[2019-11-08] MEDS ORDERED: CVS1CAP2 PO (07:59)
[2019-11-08] MEDS ORDERED: IBUP200C25 PO (07:59)
[2019-11-08] MEDS: NS 1,000 ML IV SCH ×2 (08:00→08:05)
--- NOTE | 2019-11-08 08:51 | ROOR ---
Patient Name: Taniya Saab Procedure Date: 11/08/2019 8:32 AM Date of : 1960 Age: 59 Room: [facility] Gender: Female Note Status: Finalized Procedure: Colonoscopy Indications: High risk colon cancer surveillance: Personal history of colon cancer Providers: DO Joey Dyson MD: Mounika PRADO NP Requesting Provider: Medicines: Propofol per Anesthesia Complications: No immediate complications. Procedure: Pre-Anesthesia Assessment: - Prior to the procedure, a History and Physical was performed, and patient medications and allergies were reviewed. The patient is competent. The risks and benefits of the procedure and the sedation options and risks were discussed with the patient. All questions were answered and informed consent was obtained. Patient identification and proposed procedure were verified by the physician, the nurse, the broomcorn press feeder and the audiology technician in the endoscopy suite. Mental Status Examination: alert and oriented. Airway Examination: normal oropharyngeal airway and neck mobility. Respiratory Examination: clear to auscultation. CV Examination: normal. Prophylactic Antibiotics: The patient does not require prophylactic antibiotics. Prior Anticoagulants: The patient has taken no previous anticoagulant or antiplatelet agents. ASA Grade Assessment: III - A patient with severe systemic disease. After reviewing the risks and benefits, the patient was deemed in satisfactory condition to undergo the procedure. The anesthesia plan was to use monitored anesthesia care (MAC). Immediately prior to administration of medications, the patient was re-assessed for adequacy to receive sedatives. The heart rate, respiratory rate, oxygen saturations, blood pressure, adequacy of pulmonary ventilation, and response to care were monitored throughout the procedure. The physical status of the patient was re-assessed after the procedure. The Colonoscope was introduced through the anus and advanced to the cecum, identified by appendiceal orifice and ileocecal valve. The colonoscopy was performed without difficulty. The patient tolerated the procedure well. Findings: The entire examined colon appeared normal. Impression: - The entire examined colon is normal. - No specimens collected. Recommendation: - Patient has a contact number available for emergencies. The signs and symptoms of potential delayed complications were discussed with the patient. Return to normal activities tomorrow. Written discharge instructions were provided to the patient. - Repeat colonoscopy in 1 year for screening purposes. - Return to my office in 1 year. Get Orantes DO 11/08/2019 8:50:55 AM Electronically signed by Get Orantes DO Number of Addenda: 0 Note Initiated On: 11/08/2019 8:32 AM Estimated Blood Loss: Estimated blood loss: none.
[2019-11-08 09:18] VITALS: BP 104/59
== END 2019-11-08 09:21 | disposition home or self-care (01) ==
LOC: M OPP 07:28
PROVIDERS: ATTEND Surgery
DX: Z85.038 Personal history of other malignant neoplasm of large intestine (principal); Z92.21 Personal history of antineoplastic chemotherapy; Z92.3 Personal history of irradiation; Z87.891 Personal history of nicotine dependence; Z08 Encounter for follow-up examination after completed treatment for malignant neoplasm

== ENCOUNTER → 2020-08-01 | Outpatient (CLI) | payer OTHER ==
[~2020-08-01] MED LIST changes: +CVS1CAP2 PO; +GABA-1171 PO; +GABA-282; -GABA-843; +GASTROGRAFIN SOLUTION 30ML (Q9963) As Ordered ONE; +GLYCCAP PO; +IBUP200C25 PO; +ISOVUE-370 76% 100ML VIAL As Ordered ONE; -LIDOCAINE 2% MDV 20ML VIAL As Ordered ONE; -propofoL 200 MG/20 ML VIAL As Ordered ONE
--- NOTE | 2020-08-01 13:16 | REP ---
INDICATION: RECTAL CA F/U. COMPARISON: On 07/24/2019. TECHNIQUE: CT of the chest with IV contrast. FINDINGS: There are no lung nodules or masses. There are no infiltrates or pleural effusions. There is no mediastinal, hilar or axillary lymph node enlargement. There are no lytic, blastic or destructive skeletal changes. There is no change from the comparison study. IMPRESSION: Essentially negative CT study of the chest. There is no evidence of metastatic disease. No change from the prior study. <Electronically signed by Get Leahy > 08/01/20 [id number]
--- NOTE | 2020-08-01 13:25 | REP ---
INDICATION: RECTAL CA F/U. COMPARISON: 07/24/2019. TECHNIQUE: CT of the abdomen and pelvis with IV and bowel contrast. FINDINGS: The hepatic parenchyma is homogeneous. There are no hepatic masses or cysts. The gallbladder, pancreas and spleen are normal size, homogeneous and unremarkable. The adrenals are unremarkable. There is no adrenal mass. The kidneys are abdominal are unremarkable. The abdominal aorta is unremarkable. There is no periaortic adenopathy or mass. The bowel and mesentery are unremarkable. There is no ascites. There are surgical sutures in the rectum as previously. Pelvis: There is no ascites. The uterus and adnexa are unremarkable. There is no adenopathy or mass. There are no lytic, blastic or destructive skeletal changes. There is degenerative disc disease at L4-5. This is unchanged. IMPRESSION: There is no evidence of adenopathy, ascites or metastatic disease. No change from the comparison study <Electronically signed by Get Leahy > 08/01/20 [id number]
== END ==
LOC: M RAD 09:29
PROVIDERS: ATTEND Internal Medicine Hematology & Oncology
DX: C20 Malignant neoplasm of rectum (principal)
CPT/HCPCS: 71260; 74177; Q9963; Q9967

== ENCOUNTER → 2021-01-24 | Outpatient (CLI) | payer OTHER ==
[~2021-01-24] MED LIST changes: -GASTROGRAFIN SOLUTION 30ML (Q9963) As Ordered ONE; -ISOVUE-370 76% 100ML VIAL As Ordered ONE; +MULT-90 PO
== END ==
LOC: M LABSMTC 11:20
PROVIDERS: ATTEND Anesthesiology
DX: Z01.812 Encounter for preprocedural laboratory examination (principal); Z20.822 Contact with and (suspected) exposure to COVID-19

== ENCOUNTER 2021-01-29 09:47 | Day surgery (SDC) | payer OTHER ==
[~2021-01-29] VITALS: Ht 165.1 cm; Wt 54.0 kg
[~2021-01-29 09:47] MED LIST changes: +NS 1,000 ML IV SCH
[2021-01-29] MEDS ORDERED: propofoL 200 MG/20 ML VIAL As Ordered ONE (11:16)
--- NOTE | 2021-01-29 11:34 | ROOR ---
Patient Name: Taniya Saab Procedure Date: 01/29/2021 11:16 AM Date of : 1960 Age: 60 Room: [facility] Gender: Female Note Status: Finalized Procedure: Colonoscopy Indications: High risk colon cancer surveillance: Personal history of colon cancer Providers: DO Joey Dyson MD: Mounika Constantino NP Requesting Provider: Medicines: Propofol per Anesthesia Complications: No immediate complications. Procedure: Pre-Anesthesia Assessment: - Prior to the procedure, a History and Physical was performed, and patient medications and allergies were reviewed. The patient is competent. The risks and benefits of the procedure and the sedation options and risks were discussed with the patient. All questions were answered and informed consent was obtained. Patient identification and proposed procedure were verified by the physician, the nurse, the anesthesiologist and the surfacing technician in the endoscopy suite. Mental Status Examination: alert and oriented. Airway Examination: normal oropharyngeal airway and neck mobility. Respiratory Examination: clear to auscultation. CV Examination: normal. Prophylactic Antibiotics: The patient does not require prophylactic antibiotics. Prior Anticoagulants: The patient has taken no previous anticoagulant or antiplatelet agents. ASA Grade Assessment: III - A patient with severe systemic disease. After reviewing the risks and benefits, the patient was deemed in satisfactory condition to undergo the procedure. The anesthesia plan was to use monitored anesthesia care (MAC). Immediately prior to administration of medications, the patient was re-assessed for adequacy to receive sedatives. The heart rate, respiratory rate, oxygen saturations, blood pressure, adequacy of pulmonary ventilation, and response to care were monitored throughout the procedure. The physical status of the patient was re-assessed after the procedure. The Colonoscope was introduced through the anus and advanced to the cecum, identified by appendiceal orifice and ileocecal valve. The colonoscopy was performed without difficulty. The patient tolerated the procedure well. Findings: A few small-mouthed diverticula were found in the sigmoid colon. Impression: - Diverticulosis in the sigmoid colon. - No specimens collected. Recommendation: - Patient has a contact number available for emergencies. The signs and symptoms of potential delayed complications were discussed with the patient. Return to normal activities tomorrow. Written discharge instructions were provided to the patient. - Repeat colonoscopy in 3 years for surveillance based on personal history of colon cancer. - Return to my office in 3 years. Procedure Code(s): --- Professional --- G0105, Colorectal cancer screening; colonoscopy on individual at high risk Diagnosis Code(s): --- Professional --- Z85.038, Personal history of other malignant neoplasm of large intestine K57.30, Diverticulosis of large intestine without perforation or abscess without bleeding CPT copyright 2019 [employer]. All rights reserved. The codes documented in this report are preliminary and upon human resources district manager review may be revised to meet current compliance requirements. Get Orantes DO 01/29/2021 11:33:38 AM Electronically signed by Get Orantes DO Number of Addenda: 0 Note Initiated On: 01/29/2021 11:16 AM Estimated Blood Loss: Estimated blood loss was minimal. Estimated blood loss: none.
[2021-01-29 11:56] VITALS: BP 151/64
== END 2021-01-29 11:58 | disposition home or self-care (01) ==
LOC: M OPP 09:47
PROVIDERS: ATTEND Surgery
DX: Z12.11 Encounter for screening for malignant neoplasm of colon (principal); Z85.038 Personal history of other malignant neoplasm of large intestine; K57.30 Diverticulosis of large intestine without perforation or abscess without bleeding; Z92.3 Personal history of irradiation; Z92.21 Personal history of antineoplastic chemotherapy; Z87.891 Personal history of nicotine dependence

== ENCOUNTER → 2021-02-11 | Outpatient (REF) | payer OTHER ==
[~2021-02-11] MED LIST changes: -NS 1,000 ML IV SCH
[2021-02-11 09:09] LABS: THYROID STIMULATING HORMONE 1.97 uIU/ML (0.358-3.740)
[2021-02-11 09:23] LABS: TOTAL 25(OH) VITAMIN D 31.5 NG/ML (30.0-100.0)
== END ==
LOC: M LAB REF 08:03
PROVIDERS: ATTEND Nurse Practitioner Adult Health
DX: Z00.00 Encounter for general adult medical examination without abnormal findings (principal); E03.9 Hypothyroidism, unspecified

== ENCOUNTER → 2021-02-13 | Outpatient (CLI) | payer OTHER ==
[~2021-02-13] MED LIST changes: +GASTROGRAFIN SOLUTION 30ML (Q9963) As Ordered ONE; +ISOVUE-370 76% 100ML VIAL As Ordered ONE
--- NOTE | 2021-02-13 16:45 | REP ---
INDICATION: RECTAL CA. COMPARISON: Multiple the latest 08/01/2020 also after intravenous contrast administration TECHNIQUE: Standard helical technique after the intravenous administration of 100 cc Isovue 370 and oral bowel preparatory contrast administration FINDINGS: The liver, gallbladder, spleen, pancreas, adrenal glands, and kidneys are unchanged. Incidental note is made of bilateral extrarenal pelvis. The abdominal aorta and para-aortic regions are unchanged. There is no significant change in appearance of the bowel loops or the mesenteries. There is no evidence of a mass or adenopathy. There is no free fluid or free air. Bone window technique throughout the examination shows no significant change in appearance of the osseous structures. There are spinal degenerative changes status quo. IMPRESSION: No acute disease or significant change compared to the prior exam. <Electronically signed by Nolan Corona > 02/13/21 [id number]
--- NOTE | 2021-02-13 16:46 | REP ---
INDICATION: RECTAL CA. COMPARISON: Comparison CT study of the chest is from August 01, 2020. TECHNIQUE: Helical scanning is acquired following the intravenous injection of 100 mL of Isovue 370. 3 mm axial images re-formatted. Coronal and sagittal MPR images are provided. FINDINGS: Digital preliminary telecom sales consultant radiograph is unremarkable. There is no evidence of pleural or pericardial effusion. No hilar or mediastinal mass or adenopathy is developed. The lung rey are clear. No infiltrate, nodule, or lung mass is seen. There is good opacification of the pulmonary arterial tree and thoracic aorta. No acute vascular abnormality is seen. No bony destructive lesion is appreciated. The adrenal glands are unremarkable. No supraclavicular mass or adenopathy is seen. No axillary adenopathy is noted. IMPRESSION: No active disease. <Electronically signed by Georgi Cabrera > 02/13/21 [id number]
== END ==
LOC: M RAD 14:44
PROVIDERS: ATTEND Nurse Practitioner Adult Health
DX: C20 Malignant neoplasm of rectum (principal)

== ENCOUNTER → 2021-12-03 | Outpatient (CLI) | payer OTHER ==
[~2021-12-03] MED LIST changes: -GASTROGRAFIN SOLUTION 30ML (Q9963) As Ordered ONE; -ISOVUE-370 76% 100ML VIAL As Ordered ONE; +VITA100093 PO; +[UNRECOGNIZED DRUG - CODE] PO
[2021-12-03 10:29] LABS: BASO % 0.7 % (0.0-1.0); EOS # 0.1 10^3/uL (0.0-0.5); EOS % 2.2 % (0.0-3.0); HEMATOCRIT 41.1 % (36.0-47.0); HEMOGLOBIN 12.8 g/dl (12.0-15.5); LYMPH # 1.4 10^3/uL (1.5-5.0); LYMPH % 23.4 % (24.0-44.0); MEAN CORPUSCULAR HEMOGLOBIN 30.3 pg (27.0-33.0); MEAN CORPUSCULAR HGB CONC 31.1 g/dl (32.0-36.5); MEAN CORPUSCULAR VOLUME 97.4 fl (80.0-96.0); MONO # 0.5 10^3/uL (0.0-0.8); MONO % 9.2 % (2.0-8.0); NEUTROPHILS # 3.8 10^3/uL (1.5-8.5); NEUTROPHILS % 64.2 % (36.0-66.0); PLATELET COUNT, AUTOMATED 304 10^3/uL (150-450); RED BLOOD COUNT 4.22 10^6/uL (4.00-5.40); WHITE BLOOD COUNT 5.9 10^3/uL (4.0-10.0)
[2021-12-03 11:12] LABS: ALT/SGPT 18 U/L (12-78); BILIRUBIN,TOTAL 0.3 MG/DL (0.2-1.0); BLOOD UREA NITROGEN 21 MG/DL (7-18); CALCIUM LEVEL 9.8 MG/DL (8.5-10.1); CARBON DIOXIDE LEVEL 29 MEQ/L (21-32); CHLORIDE LEVEL 109 MEQ/L (98-107); CHOLESTEROL LEVEL 239 MG/DL (<200); CHOLESTEROL RISK RATIO 2.489 (<5); CREATININE FOR GFR 0.76 MG/DL (0.55-1.30); GLOMERULAR FILTRATION RATE > 60.0 (>51); GLUCOSE, FASTING 85 MG/DL (70-100); HDL CHOLESTEROL 96 MG/DL (>40); LDL CHOLESTEROL 126 MG/DL (<100); NON-HDL-C 143 MG/DL; POTASSIUM SERUM 4.4 MEQ/L (3.5-5.1); SODIUM LEVEL 143 MEQ/L (136-145); TOTAL PROTEIN 7.5 GM/DL (6.4-8.2); TRIGLYCERIDES LEVEL 86 MG/DL (<150)
[2021-12-03 11:38] LABS: TOTAL 25(OH) VITAMIN D 33.6 NG/ML (30.0-100.0)
== END ==
LOC: M PLALAB 08:33
PROVIDERS: ATTEND Nurse Practitioner Adult Health
DX: Z00.00 Encounter for general adult medical examination without abnormal findings (principal); E03.9 Hypothyroidism, unspecified; Z86.39 Personal history of other endocrine, nutritional and metabolic disease; E55.9 Vitamin D deficiency, unspecified
CPT/HCPCS: 36415; 80053; 80061; 82306; 82378; 84443; 85025; G0463

== ENCOUNTER → 2022-02-03 | Outpatient (CLI) | payer OTHER ==
[~2022-02-03] MED LIST changes: +GASTROGRAFIN SOLUTION 30ML (Q9963) As Ordered ONE; +ISOVUE-370 76% 100ML VIAL As Ordered ONE
== END ==
LOC: M RAD 09:07
PROVIDERS: ATTEND Internal Medicine Hematology & Oncology
DX: C18.9 Malignant neoplasm of colon, unspecified (principal)
CPT/HCPCS: 71260; 74177; Q9963; Q9967

== ENCOUNTER → 2022-12-07 | Outpatient (CLI) | payer OTHER ==
[~2022-12-07] MED LIST changes: -GASTROGRAFIN SOLUTION 30ML (Q9963) As Ordered ONE; -ISOVUE-370 76% 100ML VIAL As Ordered ONE
[2022-12-07 11:18] LABS: HEMATOCRIT 39.7 % (36.0-47.0); HEMOGLOBIN 12.8 g/dl (12.0-15.5); MEAN CORPUSCULAR HEMOGLOBIN 31.2 pg (27.0-33.0); MEAN CORPUSCULAR HGB CONC 32.2 g/dl (32.0-36.5); MEAN CORPUSCULAR VOLUME 96.8 fl (80.0-96.0); PLATELET COUNT, AUTOMATED 261 10^3/uL (150-450); WHITE BLOOD COUNT 5.2 10^3/uL (4.0-10.0)
[2022-12-07 11:21] LABS: ALBUMIN 3.8 G/DL (3.2-5.2); ALKALINE PHOSPHATASE 93 U/L (46-116); ALT/SGPT 15 U/L (7.0-40); AST/SGOT 14 U/L (<34); BILIRUBIN,TOTAL 0.4 MG/DL (0.3-1.2); BLOOD UREA NITROGEN 18 MG/DL (9-23); CALCIUM LEVEL 9.2 MG/DL (8.3-10.6); CARBON DIOXIDE LEVEL 30 MMOL/L (20-31); CHLORIDE LEVEL 107 MMOL/L (98-107); CHOLESTEROL LEVEL 215 MG/DL (<200); CHOLESTEROL RISK RATIO 2.69 (<5); CREATININE FOR GFR 0.64 MG/DL (0.55-1.30); GLOMERULAR FILTRATION RATE > 60.0 (>45); GLUCOSE, FASTING 92 MG/DL (74-106); HDL CHOLESTEROL 79.7 MG/DL (>40); LDL CHOLESTEROL 113.9 MG/DL (<100); NON-HDL-C 135.3 MG/DL; POTASSIUM SERUM 4.2 MMOL/L (3.5-5.1); SODIUM LEVEL 142 MMOL/L (136-145); TOTAL PROTEIN 6.8 G/DL (5.7-8.2); TRIGLYCERIDES LEVEL 107 MG/DL (<150)
[2022-12-07 11:23] LABS: THYROID STIMULATING HORMONE 2.634 uIU/ML (0.55-4.78)
[2022-12-07 11:24] LABS: TOTAL 25(OH) VITAMIN D 37.6 NG/ML (20.0-100.0)
== END ==
LOC: M PLALAB 08:26
PROVIDERS: ATTEND Nurse Practitioner Adult Health
DX: Z00.00 Encounter for general adult medical examination without abnormal findings (principal); C20 Malignant neoplasm of rectum; G62.0 Drug-induced polyneuropathy; M47.816 Spondylosis without myelopathy or radiculopathy, lumbar region; E03.9 Hypothyroidism, unspecified; K76.0 Fatty (change of) liver, not elsewhere classified; E55.9 Vitamin D deficiency, unspecified; M54.32 Sciatica, left side; M25.512 Pain in left shoulder; Z86.39 Personal history of other endocrine, nutritional and metabolic disease
CPT/HCPCS: 36415; 80053; 80061; 82306; 84443; 85027; G0463

== ENCOUNTER → 2023-09-08 | Outpatient (CLI) | payer OTHER ==
[~2023-09-08] MED LIST changes: +collagen PO
[2023-09-08 15:50] LABS: APPEARANCE, URINE CLEAR (CLEAR); BACTERIA, URINE AUTO NEGATIVE (NEGATIVE); BILIRUBIN, URINE AUTO NEGATIVE (NEGATIVE); BLOOD, URINE BLOOD NEGATIVE (NEGATIVE); COLOR, URINE STRAW (YELLOW); GLUCOSE, URINE (UA) AUTO NEGATIVE (NEGATIVE); KETONE, URINE AUTO NEGATIVE (NEGATIVE); LEUKOCYTE ESTERASE, URINE AUTO NEGATIVE (NEGATIVE); MUCUS, URINE SMALL (NEGATIVE); NITRITE, URINE AUTO NEGATIVE (NEGATIVE); PROTEIN, URINE AUTO NEGATIVE (NEGATIVE); RBC, URINE AUTO 2 /HPF (0-3); SPECIFIC GRAVITY URINE AUTO 1.008 (1.002-1.035); SQUAMOUS EPITHELIAL CELL UR AU 0 /HPF (0-6); UROBILINOGEN, URINE AUTO 0.2 mg/dL (0.0-2.0); WBC, URINE AUTO 1 /HPF (0-3)
[2023-09-08 17:45] LABS: BASO % 0.7 % (0.0-1.0); EOS # 0.1 10^3/uL (0.0-0.5); EOS % 1.8 % (0.0-3.0); HEMATOCRIT 43.3 % (36.0-47.0); HEMOGLOBIN 13.7 g/dl (12.0-15.5); LYMPH # 1.8 10^3/uL (1.5-5.0); LYMPH % 31.6 % (24.0-44.0); MEAN CORPUSCULAR HEMOGLOBIN 30.8 pg (27.0-33.0); MEAN CORPUSCULAR HGB CONC 31.6 g/dl (32.0-36.5); MEAN CORPUSCULAR VOLUME 97.3 fl (80.0-96.0); MONO # 0.5 10^3/uL (0.0-0.8); MONO % 9.7 % (2.0-8.0); NEUTROPHILS # 3.1 10^3/uL (1.5-8.5); PLATELET COUNT, AUTOMATED 319 10^3/uL (150-450); RED BLOOD COUNT 4.45 10^6/uL (4.00-5.40); WHITE BLOOD COUNT 5.5 10^3/uL (4.0-10.0)
[2023-09-08 17:53] LABS: ALBUMIN 4.4 G/DL (3.2-5.2); ALKALINE PHOSPHATASE 111 U/L (46-116); ALT/SGPT 22 U/L (7.0-40); AST/SGOT 18 U/L (<34); BILIRUBIN,TOTAL 0.3 MG/DL (0.3-1.2); BLOOD UREA NITROGEN 12 MG/DL (9-23); CALCIUM LEVEL 10.1 MG/DL (8.3-10.6); CARBON DIOXIDE LEVEL 31 MMOL/L (20-31); CHLORIDE LEVEL 102 MMOL/L (98-107); CHOLESTEROL LEVEL 268 MG/DL (<200); CREATININE FOR GFR 0.79 MG/DL (0.55-1.30); GLOMERULAR FILTRATION RATE > 60.0 (>45); GLUCOSE, FASTING 86 MG/DL (74-106); HDL CHOLESTEROL 99.1 MG/DL (>40); LDL CHOLESTEROL 137.7 MG/DL (<100); NON-HDL-C 168.9 MG/DL; POTASSIUM SERUM 3.9 MMOL/L (3.5-5.1); SODIUM LEVEL 141 MMOL/L (136-145); TOTAL PROTEIN 7.6 G/DL (5.7-8.2); TRIGLYCERIDES LEVEL 156 MG/DL (<150)
[2023-09-08 17:55] LABS: FREE T4 0.98 NG/DL (0.89-1.76); THYROID STIMULATING HORMONE 2.245 uIU/ML (0.55-4.78)
== END ==
LOC: M PLAIMG 14:41
PROVIDERS: ATTEND Student in an Organized Health Care Education/Training Program
DX: R10.9 Unspecified abdominal pain (principal); K76.0 Fatty (change of) liver, not elsewhere classified; E55.9 Vitamin D deficiency, unspecified

== ENCOUNTER → 2023-09-16 | Outpatient (CLI) | payer OTHER | LOC: M WHC 07:48 | PROVIDERS: ATTEND Student in an Organized Health Care Education/Training Program | DX: Z12.31 Encounter for screening mammogram for malignant neoplasm of breast (principal); M81.0 Age-related osteoporosis without current pathological fracture ==

== ENCOUNTER → 2023-12-09 | Outpatient (CLI) | payer OTHER ==
[2023-12-09 10:47] LABS: CHOLESTEROL RISK RATIO 2.79 (<5); HDL CHOLESTEROL 98.8 MG/DL (>40); LDL CHOLESTEROL 153.8 MG/DL (<100); NON-HDL-C 177.2 MG/DL
== END ==
LOC: M PLALAB 08:22
PROVIDERS: ATTEND Nurse Practitioner Adult Health
DX: Z86.39 Personal history of other endocrine, nutritional and metabolic disease (principal)

== ENCOUNTER → 2024-12-11 | Outpatient (CLI) | payer OTHER ==
[~2024-12-11] MED LIST changes: +GABA-1172; -GABA-282
[2024-12-11 10:37] LABS: PLATELET COUNT, AUTOMATED 322 10^3/uL (150-450)
[2024-12-11 11:17] LABS: ALT/SGPT 18.0 U/L (7.0-40); AST/SGOT 24.0 U/L (<34); CALCIUM LEVEL 9.1 MG/DL (8.3-10.6); CARBON DIOXIDE LEVEL 30.0 MMOL/L (20-31); CHLORIDE LEVEL 103.0 MMOL/L (98-107); CHOLESTEROL LEVEL 251.0 MG/DL (<200); CHOLESTEROL RISK RATIO 2.8 (<5); CREATININE FOR GFR 0.78 MG/DL (0.55-1.30); GLOMERULAR FILTRATION RATE 85.8 (>45); LDL CHOLESTEROL 124.8 MG/DL (<100); MAGNESIUM LEVEL 2.3 MG/DL (1.8-2.4); NON-HDL-C 161.4 MG/DL; POTASSIUM SERUM 4.3 MMOL/L (3.5-5.1); SODIUM LEVEL 144.0 MMOL/L (136-145); TRIGLYCERIDES LEVEL 183.0 MG/DL (<150)
[2024-12-11 11:18] LABS: FREE T4 1.03 NG/DL (0.89-1.76)
== END ==
LOC: M PLALAB 08:26
PROVIDERS: ATTEND Nurse Practitioner Adult Health
DX: Z00.00 Encounter for general adult medical examination without abnormal findings (principal); R09.89 Other specified symptoms and signs involving the circulatory and respiratory systems; E03.9 Hypothyroidism, unspecified; Z86.39 Personal history of other endocrine, nutritional and metabolic disease; E55.9 Vitamin D deficiency, unspecified; R53.83 Other fatigue

== ENCOUNTER → 2024-12-22 | Outpatient (CLI) | payer OTHER | LOC: M WHC 07:32 | PROVIDERS: ATTEND Nurse Practitioner Adult Health | DX: Z12.31 Encounter for screening mammogram for malignant neoplasm of breast (principal) ==

== ENCOUNTER → 2025-04-10 | Outpatient (CLI) | payer OTHER ==
[~2025-04-10] MED LIST changes: +CREA1POW XX
== END ==
LOC: M RAD 07:29
PROVIDERS: ATTEND Internal Medicine Medical Oncology
DX: C19 Malignant neoplasm of rectosigmoid junction (principal); R91.8 Other nonspecific abnormal finding of lung field
CPT/HCPCS: 71260; 74177; 78306; A9503